=== PATIENT | male | born 1945 | race Caucasian/White ===

== ENCOUNTER 2021-09-01 08:33 | Outpatient (CLI) | payer MEDICARE ==
[2021-09-01 17:21] LABS: SARS-CoV-2 PCR by NAA Not Detected (NotDetected)
== END 2021-09-01 08:34 | disposition home or self-care (01) ==
LOC: CSHLAB 08:33
PROVIDERS: ATTEND Internal Medicine
DX: Z01.812 Encounter for preprocedural laboratory examination (principal); Z20.822 Contact with and (suspected) exposure to COVID-19
CPT/HCPCS: U0003; U0005

== ENCOUNTER 2021-09-05 09:34 | Outpatient (CLI) | payer MEDICARE | END 2021-09-05 09:35 | disposition home or self-care (01) | LOC: CSHCP 09:34 | PROVIDERS: ATTEND Internal Medicine Critical Care Medicine | DX: J44.9 Chronic obstructive pulmonary disease, unspecified (principal); R94.2 Abnormal results of pulmonary function studies | CPT/HCPCS: 94060; 94726; 94729; 94760 ==

== ENCOUNTER 2025-06-04 12:27 | Outpatient (CLI) | payer MEDICARE ==
[2025-06-04] MEDS ORDERED: Sodium Bicarbonate 2.5 MEQ/5 ML SDV ONE (12:46)
[2025-06-04] MEDS ORDERED: Iopamidol-M 300 61% 15 ML VIAL ONE (13:56)
== END 2025-06-04 12:28 | disposition home or self-care (01) ==
LOC: CSHRAD 12:27
PROVIDERS: ATTEND Neurological Surgery
DX: T84.226A Displacement of internal fixation device of vertebrae, initial encounter (principal); M48.07 Spinal stenosis, lumbosacral region; M43.17 Spondylolisthesis, lumbosacral region; M51.17 Intervertebral disc disorders with radiculopathy, lumbosacral region; M51.16 Intervertebral disc disorders with radiculopathy, lumbar region; M47.26 Other spondylosis with radiculopathy, lumbar region; M48.061 Spinal stenosis, lumbar region without neurogenic claudication
CPT/HCPCS: 62284; 72132; 77003; Q9967